=== PATIENT | male | born 1995 | race Caucasian/White ===

== ENCOUNTER 2017-06-12 20:41 | Inpatient (IN) | payer BC, OTHER ==
[~2017-06-12] VITALS: Ht 182.9 cm; Wt 72.6 kg
[2017-06-12] MEDS ORDERED: LOPERAMIDE HCL 2 MG CAPSULE PO PRN ×2 (22:45)
[2017-06-12] MEDS ORDERED: ONDANSETRON 4 MG/2 ML VIAL IM PRN (22:45)
[2017-06-12] MEDS ORDERED: LORAZEPAM 1 MG TABLET PO PRN ×2 (22:45)
[2017-06-12] MEDS ORDERED: CLONIDINE HCL 0.1 MG TABLET PO PRN (22:45)
[2017-06-12] MEDS ORDERED: ONDANSETRON ODT 4 MG TAB.RAPDIS SL PRN (22:45)
[2017-06-12] MEDS ORDERED: NICOTINE POLACRILEX 4 MG GUM-PK OF TEN BC PRN (22:45)
[2017-06-12] MEDS ORDERED: ACETAMINOPHEN 325 MG TABLET PO PRN (22:45)
[2017-06-12] MEDS ORDERED: IBUPROFEN 600 MG TABLET PO PRN (22:45)
[2017-06-12] MEDS ORDERED: MIRALAX 17 GM POWD.PACK PO PRN (22:45)
[2017-06-12] MEDS ORDERED: LORAZEPAM 2 MG/1 ML VIAL IM PRN (22:45)
[2017-06-12] MEDS ORDERED: BUPRENORPHINE HCL 2 MG TAB.SUBL SL PRN (22:45)
[2017-06-12] MEDS ORDERED: MAG HYDROX/AL HYDROX/SIMETH 30 ML LIQUID UDC PO PRN (22:45)
[2017-06-12] MEDS ORDERED: THIAMINE HCL 200 MG/2 ML VIAL IM ONE (22:45)
--- NOTE | 2017-06-12 22:45 | NUR ---
Thiamine IM Refused: Patient refuses ordered Thiamine IM. Patient states that he does not want an injection. Patient educated on risks and benefits but still refused.
--- NOTE | 2017-06-12 23:35 | NUR ---
Pre-Admission Note: Patient assessed in intake office at 23:35 on 06/12/2017. Patient is ambulatory with steady gait, stable, oriented X4, and drowsy. Patient states that he is here to safely detox from Xanax, Klonopin, heroin, and ETOH. VSS and WNL. Patient instructed on unit protocol of vitals Q4H and COWS/CIWA assessments. Patient verbalized understanding and agreement. Patient also instructed on policy regarding destruction of any controlled substances/prescriptions brought to facility, and handling of all medications. Patient verbalized understanding and agreement. Will complete admission assessment when patient is brought up to unit.
[2017-06-12 23:36] LABS: BASOPHILS # (AUTO) 0.1 K/uL (0.0-8.0); BASOPHILS % (AUTO) 0.8 % (0.0-2.0); EOSINOPHILS # (AUTO) 0.1 K/uL (0.0-0.7); EOSINOPHILS % (AUTO) 1.3 % (0.0-7.0); HEMATOCRIT 47.2 % (40-50); HEMOGLOBIN 15.7 G/DL (14.0-18.0); LYMPHOCYTES # (AUTO) 1.8 K/UL (0.8-4.8); LYMPHOCYTES % (AUTO) 22.8 % (20.5-51.5); MEAN CORPUSCULAR HEMOGLOBIN 29.9 UUG (27.0-31.0); MEAN CORPUSCULAR HGB CONC 33 g/dL (32.0-37.0); MEAN CORPUSCULAR VOLUME 90.1 FL (82.0-92.0); MONOCYTES # (AUTO) 0.7 K/UL (0.1-1.30); MONOCYTES % (AUTO) 8.7 % (0.0-11.0); NEUTROPHILS # (AUTO) 5.2 K/UL (1.8-8.9); NEUTROPHILS % (AUTO) 66.4 % (38.5-71.5); PLATELET COUNT (AUTO) 275 K/UL (150-450); RED BLOOD CELL COUNT(AUTO) 5.24 MIL/UL (4.7-6.1); WHITE BLOOD COUNT (AUTO) 7.9 K/UL (4.0-11.2)
--- NOTE | 2017-06-12 23:43 | NUR ---
ADMISSION NOTE: NEW ADMISSION IS A 21 YO MALE ON THE [facility] AT 23:43 ON 06/12/17; PRE-ADMISSION ASSESSMENT COMPLETED INTAKE OFFICE. UDS UNABLE TO BE COLLECTED UPON ADMISSION, PT UNABLE TO URINATE. VS: WNL. COWS:6, CIWA: 6. HEIGHT IS 6' AND WEIGHT BY STANDING SCALE IS 160 LBS. PT REPORTS NKDA/NKFA. PT DENIES HAVING A PCP. PT ADMITTED UNDER THE CARE OF DR HAAS. PT REPORTS THE FOLLOWING SUBSTANCE USE: PT REPORTS RELAPSING 3 MONTHS AGO AFTER ACHIEVING 8 MONTHS OF SOBRIETY. HE REPORTS USING: (1) PT REPORTS TAKING XANAX 3MG PO DAILY FOR 3 MONTHS CURRENTLY, 8 YEARS TOTAL. LAST USE ON THE DAY OF ADMISSION. (2) PT REPORTS TAKING KLONOPIN 3-4MG PO DAILY FOR 3 MONTHS CURRENTLY, 8 YEARS TOTAL. LAST USE ON THE DAY OF ADMISSION. (3) PT REPORTS USING 1G HEROIN VIA SMOKE INHALATION DAILY FOR 3 MONTHS CURRENTLY, 7 YEARS TOTAL. LAST USE ON THE DAY OF ADMISSION. (4) PT REPORTS DRINKING 3-12 BEERS DAILY FOR 3 MONTHS CURRENTLY, 9 YEARS TOTAL. PT REPORTS DRINKING LESS DURING THE WEEK, AND MORE ON WEEKENDS. LAST USE ON THE DAY OF ADMISSION. PT REPORTS THAT HE USED TO SMOKE, BUT DOES NOT CURRENTLY. WRITTEN SMOKING CESSATION EDUCATION PROVIDED. PT VERBALIZES UNDERSTANDING. PT DENIES ALL PMHX. PT DENIES HX OF SEIZURES. PT IS AMBULATORY WITH STEADY GAIT. PT IS ALERT AND ORIENTED X4. SKIN ASSESSMENT: PT HAS MULTIPLE OPEN WOUNDS ON BILATERAL FEET R/T LOSS OF TOENAILS FROM WEARING CONSTRUCTION BOOTS. PT DENIES CURRENT OR HX OF SI/HI. LUNGS ARE CTA THROUGHOUT, RESPIRATIONS ARE EVEN AND UNLABORED. PT DENIES COUGH. HEART SOUNDS REGULAR. BOWEL SOUNDS HYPOACTIVE IN ALL QUADRANTS; PT REPORTS CONSTIPATION WITH LAST BM ON 06/11/17. ABDOMEN IS SOFT, NON-DISTENDED, NON-TENDER.
[2017-06-12 23:50] LABS: ALANINE AMINOTRANSFERASE 26 U/L (16-63); ALKALINE PHOSPHATASE 98 U/L (50-136); AMYLASE 22 U/L (25-115); ASPARTATE AMINOTRANSFERASE 28 U/L (15-37); BILIRUBIN,TOTAL 0.7 mg/dL (0.2-1.0); CARBON DIOXIDE 37 mmol/L (21-32); CHLORIDE 94 mmol/L (98-107); CREATININE 1.4 mg/dL (0.6-1.3); GLUCOSE 62 mg/dL (74-106); MAGNESIUM 2.3 mg/dL (1.8-2.4); POTASSIUM 3.4 mmol/L (3.5-5.1); TOTAL PROTEIN, SERUM 8.7 g/dL (6.4-8.2); UREA NITROGEN, BLOOD 20 mg/dL (7-18)
[2017-06-12 23:55] LABS: ETHANOL < 3 MG/DL (0-0)
[2017-06-13] VITALS: BP 114/56
[2017-06-13] MEDS ORDERED: NEOMY/BACITRAC/POLYMI OINT 28.35 GM TUBE TOP PRN
--- NOTE | 2017-06-13 04:00 | NUR ---
Vitals Refused, COWS/CIWA Deferred: Patient refuses ordered 04:00 vital signs. Patient educated on risks and benefits but still refused. COWS and CIWA are deferred for sleep. All safety precautions are in place. Will continue to monitor. Addendum: 06/13/17 at 0440 by MAXINE ARCHULETA RN Amended: Links added.
--- NOTE | 2017-06-13 07:03 | NUR ---
End of Shift Note: Pt is a 21M admitted to [facility] last night for medically-supervised withdrawal from opiates, benzodiazepines, and ETOH. Pt is a full code, is on a regular diet, and reports NKDA/NKFA. Pt reported taking Xanax 3mg, Klonopin 3-4mg, using 1g heroin, and drinking 3-12 twelve-ounce beers daily for 3 months. Pt is to start Ativan and Subutex tapers today. Last COWS=6/CIWA=9 at 00:00. V/S stable throughout shift. Pt has not yet provided urine specimen for UDS. Total fluid intake this shift: 355 ml; output: urine x 0 and BM x 0. Pt is currently in bed and slept 5 hours this shift. All needs have been attended and met. Pt endorsed to day shift nurse.
--- NOTE | 2017-06-13 07:30 | NUR ---
START OF SHIFT Received report from night nurse. 21 year old male patient admitted on 06/12/17 for benzo, opiate and ETOH withdrawals. Pt has not yet provided urine. No PRN medications were needed or administered at night. Denies medical history. Pt to start 5 day Subutex and 5 day Ativan taper today. Most recent COWS 6 and CIWA 9. Pt slept for 8 hours. All needs met at this time, safety measures in place, will continue to monitor.
[2017-06-13 08:00] VITALS: BP 108/65
[2017-06-13] MEDS ORDERED: TUBERCULIN,PURIF.PROT.DERIV. 5 TU/0.1 ML TEST ID ONE (09:00)
[2017-06-13] MEDS ORDERED: POTASSIUM CHLORIDE 20 MEQ TAB.PRT.SR PO ONE ×2 (09:00)
[2017-06-13] MEDS: BUPRENORPHINE HCL 2 MG TAB.SUBL SL SCH ×5 (09:00→20:29)
[2017-06-13] MEDS: NICOTINE 14 MG/24HR PATCH TD SCH (09:00)
--- NOTE | 2017-06-13 09:00 | NUR ---
TB/SUBUTEX/NICOTINE PATCH NON-ADMIN Pt states he does not want the TB test, refusing Subutex at this time, COWS is 12, pt education provided on importance of medication adherence. Pt states the withdrawal symptoms are from benzos. Pt states he smokes cigarettes, nicotine patch held. aware.
[2017-06-13] MEDS: MULTIVITAMINS,THERAPEUTIC TABLET PO SCH (09:48)
[2017-06-13] MEDS: METHOCARBAMOL 750 MG TABLET PO PRN ×2 (09:48→23:33)
[2017-06-13] MEDS: LORAZEPAM 1 MG TABLET PO SCH ×4 (09:48→20:29)
--- NOTE | 2017-06-13 09:48 | NUR ---
PRN ZOFRAN/ROBAXIN Pt states he feels nauseous, no emesis noted. PRN Zofran 4mg SL administered as ordered. PRN Robaxin 750mg PO administered for generalized body aches 02/02. Will reassess.
[2017-06-13] MEDS: FOLIC ACID 1 MG TABLET PO SCH (09:49)
[2017-06-13] MEDS: THIAMINE HCL 100 MG TABLET PO SCH (09:49)
--- NOTE | 2017-06-13 10:18 | NUR ---
REASSESSMENT Pt denies nausea at this time, medication was effective.
--- NOTE | 2017-06-13 10:48 | NUR ---
REASSESSMENT Pt states the Robaxin was effective, denies pain at this time. Will continue to monitor.
[2017-06-13 10:50] LABS: *AMPHETAMINE, URINE NEGATIVE (NEGATIVE); *BARBITURATE, URINE NEGATIVE (NEGATIVE); *CANNABINOID, URINE POSITIVE (NEGATIVE); *COCCAINE, URINE NEGATIVE (NEGATIVE); *OPIATE, URINE POSITIVE (NEGATIVE); *PHENCYCLIDINE SCREEN,URINE NEGATIVE (NEGATIVE)
[2017-06-13 12:34] VITALS: BP 112/60
[2017-06-13 13:17] LABS: *BILIRUBIN,URIN NEGATIVE (NEGATIVE); *BLOOD, URINE NEGATIVE (NEGATIVE); *CLARITY,URINE TURBID (CLEAR); *COLOR,URINE YELLOW (YELLOW); *KETONES,URINE NEGATIVE (NEGATIVE); *PROTEIN,URINE NEGATIVE (NEGATIVE); *UROBILINOGEN,URINE 0.2 E.U./dl (NORMAL); LEUKOCYTE ESTERASE ,URINE NEGATIVE (NEGATIVE); NITRITE, URINE NEGATIVE (NEGATIVE); PH,URINE 5.5 (5.0-8.0); UGLUCOSE NEGATIVE (NEGATIVE)
[2017-06-13 13:38] LABS: BACTERIA,URINE NONE SEEN /HPF (NONE SEEN); RBC,URINE 0-3 /HPF (0-3); SQUAMOUS EPITHELIAL CELL,UR FEW /HPF (NONE SEEN); WBC,URINE 0-3 /HPF (0-3)
[2017-06-13 13:39] LABS: URINE AMORPHOUS URATE MANY /HPF
--- NOTE | 2017-06-13 16:57 | NUR ---
Therapist prompted client about group times. Client stated he will start to attend groups tomorrow.
[2017-06-13 17:00] VITALS: BP 113/62
--- NOTE | 2017-06-13 18:45 | NUR ---
PRN ATIVAN Pt CIWA is 10, pt is restless, anxious, sweating, has tremors and mild nausea. PRN Ativan 1mg administered as ordered. Night nurse to reassess.
--- NOTE | 2017-06-13 18:59 | NUR ---
END OF SHIFT Endorsed to night nurse. 21 year old male admitted on 06/12/17 for opiate/benzo/ETOH withdrawals. Pt is A/O x4. Pt was started on 5 day Subutex and 5 day Ativan taper today and is tolerating well. Pt denies having a BM on day shift. Ambulates with steady gait, adequate caloric intake. UC and chlamydia test still pending results. Most recent CIWA is 10 and COWS 10. PRN Ativan 1mg administered, night nurse to reassess. PRN Zofran, Robaxin administered and effective. Pt refuses Nicotine patch, education provided on smoking cessation. All needs met at this time. Safety measures in place, night nurse to continue monitoring.
--- NOTE | 2017-06-13 19:15 | NUR ---
START OF SHIFT Received 21 year old male patient admitted on 06/12/17 for Benzodiazepine, ETOH, and Heroin dependency. Pt is full code with NKA. He denies any PMHx. He reports using Xanax 3 mg QD x3 months. Last dose was 3 mg on 06/12/17. Klonopin 3-4 mg daily for 3 months. Last dose was 4 mg on 06/12/17. ETOH 3-12 oz daily for 3 months. Last dose was 06/12/17. And Heroin 1 gram daily for 3 months. Last dose was 0.25 gram on 06/12/17. Per endorsement, received PRN Zofran, Robaxin and Ativan. He is receiving a 5 day Ativan and 5 day Subutex taper and tolerating well. Pt is alert and oriented x4, breathing is even and unlabored. Safety measures in place. Will monitor.
--- NOTE | 2017-06-13 19:45 | NUR ---
PRN ATIVAN REASSESSMENT Pt reports that PRN medication was somewhat effective and states that he still feels anxious. ILANA 9. Will monitor.
[2017-06-13 20:00] VITALS: BP 121/67
[2017-06-13] MEDS: diphenhydrAMINE 50 MG CAPSULE PO PRN (23:33)
[2017-06-13] MEDS: DICYCLOMINE HCL 20 MG TABLET PO PRN (23:33)
--- NOTE | 2017-06-13 23:33 | NUR ---
PRN OLIVIA BENTYL, BENADRYL Pt reports that he feels uncomfortable and complains of body aches, abdominal cramps and inability to sleep. PRN Glennaxin Bentyl and Benadryl administered as ordered. Breathing even and unlabored, safety measures in place. Will monitor effectiveness.
[2017-06-14] VITALS: BP 136/73
[2017-06-14 08:00] VITALS: BP 101/60
[2017-06-14] MEDS: LORAZEPAM 1 MG TABLET PO SCH ×3 (09:00→21:13)
[2017-06-14] MEDS: THIAMINE HCL 100 MG TABLET PO SCH (09:00)
[2017-06-14] MEDS: MULTIVITAMINS,THERAPEUTIC TABLET PO SCH (09:00)
[2017-06-14] MEDS: NICOTINE 14 MG/24HR PATCH TD SCH (09:00)
[2017-06-14] MEDS: FOLIC ACID 1 MG TABLET PO SCH (09:00)
[2017-06-14] MEDS: BUPRENORPHINE HCL 2 MG TAB.SUBL SL SCH ×3 (09:00→21:13)
--- NOTE | 2017-06-14 09:20 | NUR ---
0900 meds given: 0900 meds given at 0920 per downime forms.
[2017-06-14 10:20] LABS: CREATININE 1.2 mg/dL (0.6-1.3); MAGNESIUM 1.8 mg/dL (1.8-2.4); POTASSIUM 3.5 mmol/L (3.5-5.1)
--- NOTE | 2017-06-14 10:30 | NUR ---
Re-assessment: Per patient, PRN Robaxin 750 mg, Bentyl 20 mg PO, and Clonidine 0.1mg PO given were effective in reducing body aches, stomach cramps, anxiety, chills and hot flashes.
--- NOTE | 2017-06-14 11:29 | NUR ---
Transfer of Care: Patient's care was transferred over to receiving nurse. All pertinent information discussed and explained.
--- NOTE | 2017-06-14 11:30 | NUR ---
ASSUMED CARE OF PT. REPORT RECEIVED FROM NURSE. PT IS A/O X 4. WILL CONTINUE TO MONITOR AND OFFER SUPPORT.
[2017-06-14 12:00] VITALS: BP 125/61
[2017-06-14] MEDS ORDERED: LORAZEPAM 1 MG TABLET PO ONE (12:00)
[2017-06-14 14:07] LABS: HEPATITIS B SURFACE AG Negative (Negative)
[2017-06-14] MEDS: GABAPENTIN 300 MG CAPSULE PO SCH ×2 (14:47→21:13)
[2017-06-14 16:00] VITALS: BP 134/66
--- NOTE | 2017-06-14 19:15 | NUR ---
START OF SHIFT Received 21 year old male patient admitted on 06/12/17 for Benzodiazepine, ETOH, and Heroin dependency. Pt is full code with NKA. He denies any PMHx. He reports using Xanax 3 mg QD x3 months. Last dose was 3 mg on 06/12/17. Klonopin 3-4 mg daily for 3 months. Last dose was 4 mg on 06/12/17. ETOH 3-12 oz daily for 3 months. Last dose was 06/12/17. And Heroin 1 gram daily for 3 months. Last dose was 0.25 gram on 06/12/17. Per endorsement, pt received a one time order for Ativan 1mg. He is receiving a 5 day Ativan and 5 day Subutex taper and tolerating well. Pt is alert and oriented x4, breathing is even and unlabored. Safety measures in place. Will monitor.
--- NOTE | 2017-06-14 19:25 | NUR ---
END OF SHIFT: PT CONTINUES ON ATIVAN/SUBUTEX TAPER.LAST COWS 8 CIWA 4. HE ATTENDED GROUPS AND SLEPT A LITTLE DURING DAY SHIFT. HE BECOMES EASILY AGITATED BUT IS EASILY REDIRECTED. HE WAS COMPLIANT WITH INCREASED FLUIDS. WILL PASS SHIFT REPORT TO ONCOMING NIGHT NURSE.
[2017-06-14 20:00] VITALS: BP 128/61
[2017-06-14] MEDS: METHOCARBAMOL 750 MG TABLET PO PRN (22:54)
[2017-06-14] MEDS: diphenhydrAMINE 50 MG CAPSULE PO PRN (22:54)
[2017-06-14] MEDS: MAGNESIUM HYDROXIDE 30 ML LIQUID UDC PO PRN (22:54)
[2017-06-14] MEDS: DICYCLOMINE HCL 20 MG TABLET PO PRN (22:54)
--- NOTE | 2017-06-14 22:54 | NUR ---
PRN BENADRYL, BENTYL, ROBAXIN, MILK OF MAGNESIA Pt complains of inability to sleep, abdominal cramps, body aches and constipation. PRN Benadryl, Bentyl, Robaxin, and Milk of Magnesia administered as ordered. Will monitor effectiveness of medications.
--- NOTE | 2017-06-14 23:54 | NUR ---
PRN REASSESSMENT PRN Benadryl, Bentyl and Robaxin effective. Pt lying in bed with eyes closed noted to be asleep. Respirations 16, breathing is even and unlabored. Will continue to monitor effectiveness of Milk of Magnesia.
--- NOTE | 2017-06-15 | NUR ---
VITALS REFUSED, COWS/CIWA DEFERRED 0000 vitals refused. COWS and CIWA deferred d/t pt is lying in bed with eyes closed noted to be asleep. Respirations 16, breathing even and unlabored. Safety measures in place. Will monitor.
--- NOTE | 2017-06-15 04:00 | NUR ---
VITALS REFUSED, COWS/CIWA DEFERRED 0400 vitals refused. COWS and CIWA deferred d/t pt is lying in bed with eyes closed noted to be asleep. Respirations 16, breathing even and unlabored. Safety measures in place. Will continue to monitor.
--- NOTE | 2017-06-15 07:09 | NUR ---
END OF SHIFT Pt is a 21 year old male patient admitted on 06/12/17 for Benzodiazepine, ETOH, and Heroin dependency. Pt is full code with NKA. He denies any PMHx. He continues on a 5 day Ativan and 5 day Subutex taper, currently on day 3/5 and tolerating well. At 2254 he received PRN Benadryl, Robaxin, Bentyl and Milk of Magnesia. He slept a total of 6 hrs, Intake: Void: BM: COWS:8, CIWA: 4. Pt remains alert and oriented x4, breathing is even and unlabored. Safety measures in place. Endorsed to oncoming shift.
[2017-06-15 08:00] VITALS: BP 106/60
--- NOTE | 2017-06-15 08:05 | NUR ---
START OF SHIFT: RECEIVED PT A/O X 4. HE PRESENTS WITH IRRITABLE MOOD AND CONGRUENT AFFECT. HE IS COMPLIANT WITH MEDS. PT C/O MILD ANXIETY ,BODY ACHES,IRRITABILITY AND RESTLESSNESS. COWS 4 CIWA 4. ATIVAN/SUBUTEX TAPER IN PROGRESS TO MANAGE S/S OF W/D. ENCOURAGED GROUP ATTENDANCE TO IMPROVE COPING SKILLS AND PREVENT RELAPSE. WILL CONTINUE TO MONITOR AND PROVIDE SUPPORT.
[2017-06-15] MEDS: GABAPENTIN 300 MG CAPSULE PO SCH ×3 (08:53→21:58)
[2017-06-15] MEDS: MULTIVITAMINS,THERAPEUTIC TABLET PO SCH (08:53)
[2017-06-15] MEDS: FOLIC ACID 1 MG TABLET PO SCH (08:53)
[2017-06-15] MEDS: THIAMINE HCL 100 MG TABLET PO SCH (08:53)
[2017-06-15] MEDS: LORAZEPAM 1 MG TABLET PO SCH ×4 (08:54→21:58)
[2017-06-15] MEDS ORDERED: BUPRENORPHINE HCL 2 MG TAB.SUBL SL SCH (09:00)
[2017-06-15] MEDS: NICOTINE 14 MG/24HR PATCH TD SCH (09:00)
[2017-06-15 10:12] LABS: *GC NAA Negative (Negative); *TRIC.VAG. NAA Negative (Negative)
[2017-06-15 12:00] VITALS: BP 106/60
[2017-06-15] MEDS: BUPRENORPHINE HCL 2 MG TAB.SUBL SL SCH ×2 (14:31→21:59)
--- NOTE | 2017-06-15 14:50 | NUR ---
therapist prompted client to attend group to meet others and take part in what the detox has to offer. CLient agreed to attend group.
--- NOTE | 2017-06-15 14:52 | NUR ---
Client was prompted to attend todays group to take part in his treatment. Client agreed to attend.
[2017-06-15 16:00] VITALS: BP 136/60
--- NOTE | 2017-06-15 18:37 | NUR ---
END OF SHIFT: PT CONTINUES ON ATIVAN/SUBUTEX TAPER.LAST COWS 3 CIWA 4. HE BECOMES EASILY AGITATED BUT IS EASILY REDIRECTED. HE WAS COMPLIANT WITH GROUP ATTENDANCE. WILL PASS SHIFT REPORT TO ONCOMING NIGHT NURSE.
[2017-06-15 20:00] VITALS: BP 129/71
--- NOTE | 2017-06-15 20:00 | NUR ---
Start of Shift Note Received 21 year old male patient admitted on 06/12/17 for Benzodiazepine, ETOH, and Heroin dependency. Px is full code with NKA and on regular diet. He denies any PMHx. Px is on 5 day Ativan and 5 day Subutex taper and tolerating well. During the rounds at 1999, Px is alert and oriented x4, breathing is even and unlabored. Px requested for pill to help him sleep tonight and stool softener for 5 days constipation. COWS 4, CIWA 5. Safety measures in place. We'll continue to monitor.
[2017-06-15] MEDS: MAGNESIUM HYDROXIDE 30 ML LIQUID UDC PO PRN (21:58)
[2017-06-15] MEDS: diphenhydrAMINE 50 MG CAPSULE PO PRN (21:58)
--- NOTE | 2017-06-15 21:58 | NUR ---
PRN meds During the rounds at 1999, Px requested for pill to help him sleep tonight and stool softener for 5 days constipation. Benadryl 50 mg/cap, 1 cap; Clonidine 0.1 mg/tab, 1 tab given for anxiety and Milk of magnesia 30 ml given PO as PRN meds. We'll continue to monitor.
[2017-06-16] VITALS: BP 113/59
--- NOTE | 2017-06-16 04:00 | NUR ---
VS refused VS refused by the px. Respirations are even and unlabored at 15 cpm. We'll continue to monitor.
--- NOTE | 2017-06-16 04:00 | NUR ---
COWS and CIWA deferred COWS and CIWA deferred due to the px is sleeping, to assess if the px is awake per doctor's order. We'll continue to monitor.
--- NOTE | 2017-06-16 07:02 | NUR ---
End of Shift Note 21 year old male patient admitted on 06/12/17 for Benzodiazepine, ETOH, and Heroin dependency. Px is full code with NKA and on regular diet. He denies any PMHx. Px is on 5 day Ativan and 5 day Subutex taper and tolerating well. During the shift, Px requested for pill to help him sleep tonight and medicine for constipation, Benadryl 50 mg/cap, 1 cap; Clonidine 0.1 mg/tab, 1 tab given for anxiety and Milk of magnesia 30 ml given PO as PRN meds. Oral intake of 500 ml, voided 1x, no BM. Slept for 6 hrs. Last COWS 3, CIWA 4. Safety measures in place. We'll continue to monitor.
[2017-06-16 08:00] VITALS: BP 110/74
--- NOTE | 2017-06-16 08:06 | NUR ---
Start of shift note; Received report from night nurse. Patient is a 21 year old male admitted on 06/12/17 for Opiate/ Benzo/ETOH dependence. Patient was placed on 5 day Ativan and Subutex taper, no adverse reactions noted. NKA, on full code status on a regular diet. Patient's last COWS is 3 and last CIWA is 4 at 2400. Patient received PRN Benadryl, Clonidine, MOM. Patient slept for 6 hours. Patient is on fall and seizure precaution. Bed in lowest position, call light within reach. Will continue to monitor patient.
[2017-06-16] MEDS ORDERED: BUPRENORPHINE HCL 2 MG TAB.SUBL SL SCH ×2 (09:00→21:00)
[2017-06-16] MEDS: NICOTINE 14 MG/24HR PATCH TD SCH (09:00)
[2017-06-16] MEDS: GABAPENTIN 400 MG CAPSULE PO SCH ×3 (09:35→21:29)
[2017-06-16] MEDS: BACLOFEN 10 MG TABLET PO SCH ×3 (09:35→21:30)
[2017-06-16] MEDS: MULTIVITAMINS,THERAPEUTIC TABLET PO SCH (09:35)
[2017-06-16] MEDS: THIAMINE HCL 100 MG TABLET PO SCH (09:35)
[2017-06-16] MEDS: FOLIC ACID 1 MG TABLET PO SCH (09:35)
[2017-06-16] MEDS: LORAZEPAM 1 MG TABLET PO SCH ×3 (09:35→21:29)
[2017-06-16 12:00] VITALS: BP 131/65
[2017-06-16] MEDS ORDERED: MAGNESIUM CITRATE 296 ML BOTTLE PO ONE (15:45)
[2017-06-16] MEDS: DOCUSATE SODIUM 250 MG CAPSULE PO SCH (15:54)
[2017-06-16 16:00] VITALS: BP 130/71
--- NOTE | 2017-06-16 18:52 | NUR ---
End of shift note; Patient is AOX4. Patient is a 21 year old male admitted on 06/12/17 for Opiate/ Benzo/ETOH dependence. Patient was placed on 5 day Ativan and Subutex taper, no adverse reactions noted. NKA, on full code status on a regular diet. Patient remained compliant with treatment plan and medication regime. Medications were effective in reducing withdrawal symptoms. Patient received Colace and Citrate of magnesium for constipation noted to be effective. All safety measures secured. Met all needs.
--- NOTE | 2017-06-16 19:30 | NUR ---
START OF SHIFT Patient is a 21 year old male admitted on for Opiate/ Benzo/ETOH dependence. Patient continues to be on 5 day Ativan and Subutex taper as ordered, no adverse reactions noted. NKA, on full code status on a regular diet. Patient is compliant with treatment plan and medication regime.Received in room in a stable condition.All safety measures in place per hospital policy,call light within reach, will continue to monitor.
[2017-06-16 20:00] VITALS: BP 133/76
[2017-06-16] MEDS: diphenhydrAMINE 50 MG CAPSULE PO PRN (21:30)
--- NOTE | 2017-06-16 21:30 | NUR ---
PRN MED BENADRYL 50 MG PO GIVEN ORDERED FOR C/O INSOMNIA.WILL MONITOR.
--- NOTE | 2017-06-16 22:30 | NUR ---
PRN F/U PT IS RESTING IN BED WITH EYES CLOSED,APPEARS TO BE ASLEEP.NO S/S OF DISTRESS NOTED,WILL CONTINUE TO MONITOR.
--- NOTE | 2017-06-17 | NUR ---
V/S REFUSED,COWS/CIWA DEFERRED PT DIS NOT WANT TO BE WOKEN UP FOR V/S IF SLEEPING.COWS/CIWA DEFERRED D/T PT BEING FAST ASLEEP.
--- NOTE | 2017-06-17 04:00 | NUR ---
V/S REFUSED,COWS/CIWA DEFERRED PT DOES NOT WANT TO BE WOKEN UP FOR V/S IF SLEEPING.COWS/CIWA DEFERRED D/T PT BEING FAST ASLEEP.NO S/S OF DISTRESS NOTED,WILL CONTINUE TO MONITOR.
--- NOTE | 2017-06-17 06:50 | NUR ---
END OF SHIFT Patient is a 21 year old male admitted on for Opiate/ Benzo/ETOH dependence. Patient continues to be on 5 day Ativan and Subutex taper as ordered, no adverse reactions noted. NKA, on full code status on a regular diet. Patient is compliant with treatment plan and medication regime.Last COWS=3,CIWA=2.PRN Benadryl was given due to Insomnia with good effect.Pt slept 8 hours,fluid intake was 1150 mls,voided x 4.All safety measures in place per hospital policy,call light within reach, will continue to monitor.
--- NOTE | 2017-06-17 07:30 | NUR ---
start of shift note: received pt from hourly shift manager nurse, pt is in stable condition no s/s of pain or discomfort. pt is admitted to [facility] for benzo/opiate withdrawal/dependence. pt is tolerating taper medication well no a/r to medications. will monitor pt for any changes. pt's last cows 3 and ciwa 2. pt slept for 8 hrs
[2017-06-17] MEDS ORDERED: LORAZEPAM 1 MG TABLET PO SCH ×2 (09:00)
[2017-06-17] MEDS ORDERED: BUPRENORPHINE HCL 2 MG TAB.SUBL SL SCH ×2 (09:00)
[2017-06-17] MEDS: NICOTINE 14 MG/24HR PATCH TD SCH (09:00)
[2017-06-17] MEDS: MULTIVITAMINS,THERAPEUTIC TABLET PO SCH (09:14)
[2017-06-17] MEDS: FOLIC ACID 1 MG TABLET PO SCH (09:14)
[2017-06-17] MEDS: GABAPENTIN 400 MG CAPSULE PO SCH ×3 (09:14→22:31)
[2017-06-17] MEDS: BACLOFEN 10 MG TABLET PO SCH ×3 (09:14→22:31)
[2017-06-17] MEDS: DOCUSATE SODIUM 250 MG CAPSULE PO SCH (09:14)
[2017-06-17] MEDS: THIAMINE HCL 100 MG TABLET PO SCH (09:14)
[2017-06-17 10:52] VITALS: BP 106/62
[2017-06-17 13:46] VITALS: BP 126/66
[2017-06-17 18:48] VITALS: BP 117/61
--- NOTE | 2017-06-17 19:24 | NUR ---
END OF SHIFT NOTE: PT IS ADMITTED TO [facility] FOR BENZO/OPIATE WITHDRAWAL/DEPENDENCE. PT COMPLETED ATIVAN AND SUBUTEX TAPER WITHOUT A/R. PT WILL DISCHARGE TOMORROW, PTS LAST COWS 2 AND CIWA2. WILL ENDORSE PT TO [employer]INE[employer] STATION NURSE
--- NOTE | 2017-06-17 19:45 | NUR ---
START OF SHIFT Patient is 21-year-old male admitted on 06/12/17 for ETOH and Xanax dependence, with Klonopin and Heroin substance abuse history. Patient reported no past medical history upon admission. Patient is FULL code, NKA, and on regular diet. 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 Patient has been using triple antibiotic as ordered. Patient has completed 5 day Ativan and 5 day Subutex taper today and is scheduled for discharge tomorrow. Patient is on fall and seizure precautions, safety measures in place, bed locked in low position, side rails up x2, call light within reach. Will continue to monitor.
[2017-06-17 20:00] VITALS: BP 155/53
[2017-06-17] MEDS ORDERED: TRAZODONE 50 MG TABLET PO ONE (21:00)
[2017-06-17] MEDS ORDERED: GABA-536 PO (22:19)
[2017-06-17] MEDS ORDERED: IBUP-1955 PO (22:19)
[2017-06-17] MEDS ORDERED: HYDR25CA PO (22:19)
[2017-06-17] MEDS ORDERED: METH-406 PO (22:19)
[2017-06-17] MEDS ORDERED: DIPH50CA37 PO (22:19)
--- NOTE | 2017-06-18 | NUR ---
MIDNIGHT VITALS, COWS & CIWA Patient refused to be woken up for midnight vital signs. Patient's respirations are at 16/min, even and unlabored, no distress noted at this time. CIWA and COWS scores unable to be scored while patient is asleep, to be scored while awake per protocol. Safety measures in place, call light within reach, will continue to monitor.
--- NOTE | 2017-06-18 04:00 | NUR ---
4AM VITALS REFUSED, COWS & CIWA DEFERRED Patient refused to be woken up for 4AM vital signs. Patient's respirations at 16/min are even and unlabored, no distress noted at this time. COWS and CIWA deferred; unable to be assessed while patient is asleep, to be scored while awake per protocol. Safety measures in place, call light within reach, will continue to monitor.
--- NOTE | 2017-06-18 07:27 | NUR ---
END OF SHIFT Patient is 21-year-old male admitted on 06/12/17 for ETOH and Xanax dependence, with Klonopin and Heroin substance abuse history. Patient reported no past medical history upon admission. Patient is FULL code, NKA, and on regular diet. Patient is scheduled for discharge today. Patient slept 6.5 hours, total intake 1,050mL, void x4, BM x0. Last COWS score was 3, last CIWA score was 2. Patient is on fall and seizure precautions, safety measures in place, bed locked in low position, side rails up x2, call light within reach. Will endorse to day shift.
--- NOTE | 2017-06-18 07:35 | NUR ---
START OF SHIFT Received report from night nurse. 21 year old male patient admitted on 06/12/17 for opiate/benzo/ETOH withdrawals. Pt has completed ordered 5 day Subutex taper and 5 day Ativan taper and is medically cleared for discharge. No acute s/s of withdrawals over night, most recent COWS 3 and CIWA 2. Pt slept for 6 hours, no PRN medication needed or administered. V/S remain stable and wnl. Pt is aware of discharge and states he is ready. Pt remains compliant. Pt refuses nicotine patch, education provided on importance of smoking cessation. All needs met at this time, safety measures in place, will continue to monitor.
[2017-06-18 08:08] VITALS: BP 119/67
[2017-06-18] MEDS: BACLOFEN 10 MG TABLET PO SCH (08:51)
[2017-06-18] MEDS: THIAMINE HCL 100 MG TABLET PO SCH (08:51)
[2017-06-18] MEDS: FOLIC ACID 1 MG TABLET PO SCH (08:51)
[2017-06-18] MEDS: DOCUSATE SODIUM 250 MG CAPSULE PO SCH (08:51)
[2017-06-18] MEDS: GABAPENTIN 400 MG CAPSULE PO SCH (08:51)
[2017-06-18] MEDS: MULTIVITAMINS,THERAPEUTIC TABLET PO SCH (08:51)
[2017-06-18] MEDS ORDERED: BUPRENORPHINE HCL 2 MG TAB.SUBL SL SCH (09:00)
[2017-06-18] MEDS ORDERED: LORAZEPAM 1 MG TABLET PO SCH (09:00)
[2017-06-18] MEDS: NICOTINE 14 MG/24HR PATCH TD SCH (09:00)
--- NOTE | 2017-06-18 10:06 | NUR ---
D/C NOTE Pt is A/O x4. V/S remain WNL. Pt denies SI/HI or hallucinations. Pt shows no s/s of acute withdrawal at this time, and is stable. has medically cleared pt for d/c. Education on Hepatitis C, smoking cessation and medication side effects provided. Pt verbalizes understanding. All pt belongings are in belonging bag, including prescriptions, pt did not have any home medications. Refuses PNU vaccination. Pt is being accompanied by WELL SURVEYING ENGINEER at this time to be transported to rehab. All needs met.
== END 2017-06-18 10:06 | disposition home or self-care (01) | DRG 895 ==
LOC: SRC 22:33
PROVIDERS: ADMIT Internal Medicine; ATTEND Internal Medicine
PROC: HZ2ZZZZ Detoxification Services for Substance Abuse Treatment (ICD-10-PCS; principal; 2017-06-12)
PROC: HZ31ZZZ Individual Counseling for Substance Abuse Treatment, Behavioral (ICD-10-PCS; 2017-06-13)
PROC: HZ41ZZZ Group Counseling for Substance Abuse Treatment, Behavioral (ICD-10-PCS; 2017-06-14)
DX: F10.230 Alcohol dependence with withdrawal, uncomplicated (principal); E87.3 Alkalosis; N17.9 Acute kidney failure, unspecified; E86.0 Dehydration; F11.23 Opioid dependence with withdrawal; F13.230 Sedative, hypnotic or anxiolytic dependence with withdrawal, uncomplicated; Y90.0 Blood alcohol level of less than 20 mg/100 ml; F17.290 Nicotine dependence, other tobacco product, uncomplicated; Z81.1 Family history of alcohol abuse and dependence; Z72.51 High risk heterosexual behavior; E87.6 Hypokalemia
CPT/HCPCS: 36415; 70030-TC; 80307; 80346; 80349; 80361; 83735; 85025; 86592; 86705; 86803; 87340; 87491; 87806; A4663; G0480; Q0162; Q0163